=== PATIENT | male | born 1995 | race Two or more races ===

== ENCOUNTER 2020-06-17 01:35 | Emergency (ER) | payer SELFPAY ==
[~2020-06-17] VITALS: Ht 170.2 cm; Wt 106.2 kg
[2020-06-17] MEDS ORDERED: HYDROCODONE/ACETAMINOPHEN 5/325MG TABLET PO ONE (02:45)
[2020-06-17] MEDS ORDERED: CEFTRIAXONE SODIUM 1 G/VIAL IM ONE (04:00)
[2020-06-17] MEDS ORDERED: TETANUS, DIPHTHERIA, PERTUSSIS VAC/PF 0.5ML (>7YR OLD) IM ONE (04:00)
[2020-06-17] MEDS ORDERED: LIDOCAINE HCL 1% 20ML VIAL (Pyxis) INJ INFIL ONE (04:00)
[2020-06-17 04:35] VITALS: BP 130/81
== END 2020-06-17 04:36 | disposition home or self-care (01) ==
LOC: ER 01:35
DX: S61.216A Laceration without foreign body of right little finger without damage to nail, initial encounter (principal); I95.9 Hypotension, unspecified; W26.8XXA Contact with other sharp object(s), not elsewhere classified, initial encounter; Y93.89 Activity, other specified; Y92.89 Other specified places as the place of occurrence of the external cause; Y99.8 Other external cause status
CPT/HCPCS: 90471; 90715; 96372; 99284; J0696; J3490